=== PATIENT | male | born 1970 | race Two or more races ===

== ENCOUNTER 2020-01-25 11:43 | Emergency (ER) | payer SELFPAY ==
[~2020-01-25] VITALS: Ht 182.9 cm; Wt 81.6 kg
[2020-01-25 12:26] VITALS: BP 146/73
== END 2020-01-25 14:15 | disposition home or self-care (01) ==
LOC: EDBD 11:43 → ER 11:43
DX: K59.00 Constipation, unspecified (principal); F17.210 Nicotine dependence, cigarettes, uncomplicated; F20.9 Schizophrenia, unspecified
CPT/HCPCS: 74176